=== PATIENT | female | born 1975 | race Hispanic/Latino ===

== ENCOUNTER 2017-05-23 09:10 | Emergency (ER) | payer MEDICAID ==
[2017-05-23] MEDS ORDERED: DiphenhydrAMINE HCL 50 MG/ML VIAL ONE (09:33)
[2017-05-23 10:53] LABS: APPEARANCE,URINE Clear (CLEAR); BILIRUBIN,URINE Negative (NEGATIVE); COLOR,URINE Yellow (YELLOW); GLUCOSE, URINE (UA) Negative (NEGATIVE); KETONES,URINE Negative (NEGATIVE); LEUKOCYTE ESTERASE ,URINE Moderate (NEGATIVE); NITRATE,URINE Negative (NEGATIVE); OCCULT BLOOD,URINE Negative (NEGATIVE); PH,URINE >=9.0 (5.0-8.0); PROTEIN,URINE Negative (NEGATIVE); UROBILINOGEN,URINE 0.2 mg/dL (0.2-1.0)
[2017-05-23 11:15] LABS: BACTERIA,URINE Rare /HPF (None Seen); RBC,URINE 0-1 /HPF (0-1); SQUAMOUS EPITHELIAL CELL,UR Rare /HPF (0-2); WBC,URINE 0-1 /HPF (0-1)
== END 2017-05-23 12:11 | disposition home or self-care (01) ==
LOC: EDH 09:10
DX: R06.4 Hyperventilation (principal)
CPT/HCPCS: 81001; 87088; 93005; 96372; 99285; J1200

== ENCOUNTER → 2017-08-23 | Outpatient (CLI) | payer MEDICAID | END | disposition home or self-care (01) | LOC: OIH 11:06 | PROVIDERS: ATTEND Internal Medicine Gastroenterology | DX: K59.01 Slow transit constipation (principal) | CPT/HCPCS: 74018 ==

== ENCOUNTER → 2018-04-27 | Outpatient (CLI) | payer MEDICAID ==
[~2018-04-27] MED LIST: BISA5TAB12 PO; FLUO20CA30 PO; IBUP-2070 PO; LAMO25TA8 PO; LINA290C PO; OMEP20CA10 PO; TEMA30CA PO
== END | disposition home or self-care (01) ==
LOC: RAH 13:47
PROVIDERS: ATTEND Family Medicine
DX: J32.9 Chronic sinusitis, unspecified (principal)
CPT/HCPCS: 70486

== ENCOUNTER → 2018-06-03 | Outpatient (CLI) | payer MEDICAID ==
[~2018-06-03] MED LIST changes: -LAMO25TA8 PO; +LAMO25TA9 PO
== END | disposition home or self-care (01) ==
LOC: RAH 13:55
PROVIDERS: ATTEND Family Medicine
DX: R51 Headache (principal)
CPT/HCPCS: 70450

== ENCOUNTER 2018-08-07 14:41 | Emergency (ER) | payer MEDICAID ==
[2018-08-07] MEDS ORDERED: DiphenhydrAMINE HCL 50 MG/ML VIAL ONE (15:08)
[2018-08-07 15:13] LABS: BASOPHILS % (AUTO) 0.5 % (0.0-5.0); EOSINOPHILS % (AUTO) 1.2 % (0.0-8.0); HEMATOCRIT 37.8 % (36-48); LYMPHOCYTES % (AUTO) 22.7 % (21.0-51.0); MEAN CORPUSCULAR HEMOGLOBIN 28.4 pg (27.0-33.0); MEAN CORPUSCULAR HGB CONC 33.6 g/dL (32.0-36.0); MEAN CORPUSCULAR VOLUME 84.6 fL (79-99); MONOCYTES % (AUTO) 3.2 % (3.0-13.0); NEUTROPHILS % (AUTO) 72.4 % (40.0-77.0); PLATELET COUNT (AUTO) 299 K/uL (130-400); RED BLOOD CELL COUNT(AUTO) 4.47 MIL/uL (4.00-5.50); RED CELL DISTRIBUTION WIDTH 12.8 % (11.0-15.5); WHITE BLOOD COUNT (AUTO) 6.3 K/uL (4.8-10.8)
[2018-08-07 15:28] LABS: APPEARANCE,URINE Cloudy (CLEAR); BILIRUBIN,URINE Negative (NEGATIVE); COLOR,URINE Yellow (YELLOW); GLUCOSE, URINE (UA) Negative (NEGATIVE); KETONES,URINE Trace mg/dL (NEGATIVE); LEUKOCYTE ESTERASE ,URINE Large (NEGATIVE); NITRATE,URINE Negative (NEGATIVE); OCCULT BLOOD,URINE Small (NEGATIVE); PROTEIN,URINE Trace mg/dL (NEGATIVE)
[2018-08-07 15:30] LABS: HCG,QUAL RESULT NEGATIVE (NEGATIVE)
[2018-08-07 15:36] LABS: MUCUS,URINE Many LPF (None Seen)
[2018-08-07 15:37] LABS: BACTERIA,URINE Few /HPF (None Seen); RBC,URINE 0-1 /HPF (0-1); SQUAMOUS EPITHELIAL CELL,UR 30-50 /HPF (0-2); WBC,URINE 26-50 /HPF (0-1)
[2018-08-07 16:36] LABS: CREATININE 0.7 mg/dL (0.5-1.5); POTASSIUM 3.3 mmol/L (3.5-5.1)
[2018-08-07 16:40] LABS: ALBUMIN 3.4 g/dL (3.5-5.0); BILIRUBIN,TOTAL 0.7 mg/dL (0.2-1.0); TOTAL PROTEIN, SERUM 7.1 g/dL (6.0-8.3)
[2018-08-07 16:44] LABS: APPEARANCE,URINE Clear (CLEAR); BILIRUBIN,URINE Negative (NEGATIVE); COLOR,URINE Yellow (YELLOW); GLUCOSE, URINE (UA) Negative (NEGATIVE); KETONES,URINE Negative (NEGATIVE); LEUKOCYTE ESTERASE ,URINE Moderate (NEGATIVE); NITRATE,URINE Negative (NEGATIVE); OCCULT BLOOD,URINE Small (NEGATIVE); PH,URINE >=9.0 (5.0-8.0); PROTEIN,URINE Negative (NEGATIVE); UROBILINOGEN,URINE 0.2 mg/dL (0.2-1.0)
[2018-08-07] MEDS ORDERED: KETOROLAC TROMETHAMINE 30MG/ML ONE (16:46)
[2018-08-07 16:58] LABS: BACTERIA,URINE Few /HPF (None Seen); RBC,URINE 0-1 /HPF (0-1)
== END 2018-08-07 17:42 | disposition home or self-care (01) ==
LOC: EDH 14:41
DX: G43.909 Migraine, unspecified, not intractable, without status migrainosus (principal); R10.84 Generalized abdominal pain; R06.4 Hyperventilation; F32.9 Major depressive disorder, single episode, unspecified; F41.9 Anxiety disorder, unspecified
CPT/HCPCS: 36415; 71046; 80053; 81001; 81025; 82550; 84484; 85025; 87088; 93005; 96374; 96375; 99285; J1200; J1885

== ENCOUNTER 2018-12-21 07:06 | Day surgery (SDC) | payer MEDICAID ==
[~2018-12-21] VITALS: Ht 157.5 cm; Wt 68.9 kg
[~2018-12-21 07:06] MED LIST changes: +OMEP-50 PO; -OMEP20CA10 PO; +SODIUM CHLORIDE 0.9% 1000ML 1,000 ML IV ONE
[2018-12-21 08:15] VITALS: BP 99/66
[2018-12-21] MEDS ORDERED: PROPOFOL 10 MG/ML 20ML VIAL IV ONE ×2 (09:29)
[2018-12-21 09:40] VITALS: BP 88/49
[2018-12-21 09:45] VITALS: BP 93/45
[2018-12-21 09:50] VITALS: BP 92/67
[2018-12-21 09:55] VITALS: BP 93/67
[2018-12-21 10:00] VITALS: BP 106/59
== END 2018-12-21 10:10 | disposition home or self-care (01) ==
LOC: ENDO 07:06 → DAH 07:06 → ENDO 10:10
PROVIDERS: ATTEND Internal Medicine Gastroenterology
DX: K29.50 Unspecified chronic gastritis without bleeding (principal); K44.9 Diaphragmatic hernia without obstruction or gangrene; K59.04 Chronic idiopathic constipation; K62.89 Other specified diseases of anus and rectum; K21.9 Gastro-esophageal reflux disease without esophagitis; F41.9 Anxiety disorder, unspecified; F32.9 Major depressive disorder, single episode, unspecified; Z79.899 Other long term (current) drug therapy
CPT/HCPCS: 43239; 81025; 88305; A4215; A4221; A4222; A4223; A4606; A4615; A4663; J2704 ×2; J7030

== ENCOUNTER 2022-07-24 09:58 | Emergency (ER) | payer MEDICAID ==
[~2022-07-24] VITALS: Ht 157.5 cm; Wt 68.0 kg
[~2022-07-24 09:58] MED LIST changes: +ACET-2247 PO; +BISA-151 PO; -BISA5TAB12 PO; +CEPH500B PO; -FLUO20CA30 PO; -LAMO25TA9 PO; -OMEP-50 PO; +OSEL75 PO; -SODIUM CHLORIDE 0.9% 1000ML 1,000 ML IV ONE
[2022-07-24 11:05] LABS: APPEARANCE,URINE CLEAR (CLEAR); BILIRUBIN,URINE NEGATIVE (NEGATIVE); COLOR,URINE COLORLESS (YELLOW); GLUCOSE, URINE (UA) NEGATIVE (NEGATIVE); KETONES,URINE NEGATIVE (NEGATIVE); LEUKOCYTE ESTERASE ,URINE 75 Leu/uL (NEGATIVE); NITRATE,URINE NEGATIVE (NEGATIVE); OCCULT BLOOD,URINE NEGATIVE (NEGATIVE); PROTEIN,URINE NEGATIVE (NEGATIVE); UROBILINOGEN,URINE 0.2 mg/dL (0.2-1.0)
[2022-07-24 11:19] LABS: BACTERIA,URINE RARE /HPF (None Seen); MUCUS,URINE RARE LPF (None Seen); SQUAMOUS EPITHELIAL CELL,UR RARE /HPF (0-2)
[2022-07-24] MEDS ORDERED: LACT10SO9 PO (11:50)
[2022-07-24 11:56] VITALS: BP 133/78
== END 2022-07-24 11:57 | disposition home or self-care (01) ==
LOC: EDH 09:58
DX: K59.00 Constipation, unspecified (principal); Z90.49 Acquired absence of other specified parts of digestive tract; Z79.899 Other long term (current) drug therapy; Z98.890 Other specified postprocedural states; Z88.8 Allergy status to other drugs, medicaments and biological substances
CPT/HCPCS: 74018; 81001; 87088

== ENCOUNTER 2022-09-06 20:21 | Emergency (ER) | payer MEDICAID ==
[~2022-09-06] VITALS: Ht 157.5 cm; Wt 67.1 kg
[~2022-09-06 20:21] MED LIST changes: +LACT10SO9 PO
[2022-09-06 20:22] VITALS: BP 116/64
[2022-09-06] MEDS ORDERED: KETOROLAC 30MG VIAL (30MG/ML) IVP ONE (22:00)
[2022-09-06] MEDS ORDERED: ACETAMINOPHEN WITH CODEINE 1 TAB TAB PO ONE (22:00)
[2022-09-06] MEDS ORDERED: NAPR500T6 PO (22:47)
== END 2022-09-06 22:52 | disposition home or self-care (01) ==
LOC: EDH 20:21
DX: S93.401A Sprain of unspecified ligament of right ankle, initial encounter (principal); Z88.1 Allergy status to other antibiotic agents; Z90.49 Acquired absence of other specified parts of digestive tract; X50.1XXA Overexertion from prolonged static or awkward postures, initial encounter; Y93.01 Activity, walking, marching and hiking; Y92.89 Other specified places as the place of occurrence of the external cause; Y99.8 Other external cause status
CPT/HCPCS: 99283; 96374; 73600; J1885

== ENCOUNTER 2022-12-16 10:16 | Emergency (ER) | payer MEDICAID ==
[~2022-12-16] VITALS: Ht 152.4 cm; Wt 67.6 kg
[~2022-12-16 10:16] MED LIST changes: +NAPR500T6 PO
[2022-12-16] MEDS ORDERED: 0.9%NACL 1000ML 1,000 ML IV ONE (10:30)
[2022-12-16 10:38] VITALS: BP 127/76; PULSE 81; RESP 14; O2SAT 98
[2022-12-16 11:42] LABS: APPEARANCE,URINE CLOUDY (CLEAR); BILIRUBIN,URINE NEGATIVE (NEGATIVE); COLOR,URINE YELLOW (YELLOW); GLUCOSE, URINE (UA) NEGATIVE (NEGATIVE); KETONES,URINE NEGATIVE (NEGATIVE); LEUKOCYTE ESTERASE ,URINE NEGATIVE Leu/uL (NEGATIVE); NITRATE,URINE NEGATIVE (NEGATIVE); OCCULT BLOOD,URINE MODERATE (NEGATIVE); PH,URINE 6.5 (5.0-8.0); PROTEIN,URINE 10 mg/dL (NEGATIVE); UROBILINOGEN,URINE 0.2 mg/dL (0.2-1.0)
[2022-12-16 11:54] LABS: ADD UA MICROSCOPIC YES
[2022-12-16] MEDS ORDERED: SOLU-MEDROL 125MG VIAL IVP ONE (12:00)
[2022-12-16 12:01] LABS: BACTERIA,URINE RARE /HPF (None Seen); MUCUS,URINE FEW LPF (None Seen); SQUAMOUS EPITHELIAL CELL,UR MANY /HPF (0-2)
[2022-12-16] MEDS ORDERED: METH4TAB3 PO (13:26)
== END 2022-12-16 13:39 | disposition home or self-care (01) ==
LOC: EDH 10:16
DX: M79.671 Pain in right foot (principal); R53.1 Weakness; Z90.49 Acquired absence of other specified parts of digestive tract; Z88.1 Allergy status to other antibiotic agents; Z79.52 Long term (current) use of systemic steroids
CPT/HCPCS: 99285; 96374; 70450; 96361; 81001; 73620; J7030; J2930

== ENCOUNTER → 2023-06-14 | Outpatient (CLI) | payer MEDICAID ==
[~2023-06-14] MED LIST changes: +METH4TAB3 PO
[2023-06-14 12:03] LABS: CREATININE 0.6 mg/dL (0.5-1.0)
== END | disposition home or self-care (01) ==
LOC: LAB 11:16
PROVIDERS: ATTEND Internal Medicine Gastroenterology
DX: R10.10 Upper abdominal pain, unspecified (principal)
CPT/HCPCS: 36415; 82565; 84520

== ENCOUNTER 2024-01-13 08:30 | Emergency (ER) | payer MEDICAID ==
[~2024-01-13] VITALS: Ht 157.5 cm; Wt 68.0 kg
[~2024-01-13 08:30] MED LIST changes: +BENZ-39 PO; +NAPR-1506 PO; -NAPR500T6 PO
--- NOTE | 2024-01-13 08:58 | ERN ---
General Chief Complaint: Multiple Complaints Stated Complaint: WEAKNESS Time Seen by MD: 08:46 History of Present Illness Initial Comments 48-year-old female presents for fevers, headaches, body aches, dizziness, nausea, cough and sore throat for the last 36 hours. Her son recently tested positive for flu. Medical history: Irritable bowel syndrome Surgical history: Hysterectomy Allergies: Coded Allergies: levofloxacin (Unverified Allergy, Severe, FACE SWELLS, 10/18/17) Uncoded Allergies: PER PT UNABLE TO RECALL NAME (Allergy, Unknown, 06/26/22) Home Meds Active Scripts Benzonatate (Tessalon Perles) 100 Mg Cap, 100 MG PO TID for cough, #30 CAP 0 Refills Prov:DONATO PEDROZA MD 09/19/23 Methylprednisolone (Medrol) 4 Mg Tab.ds.pk, 4 MG PO AD for 6 Days, #1 PACK Prov:MEGHA HOSKINS MD 12/16/22 Naproxen (Naproxen) 500 Mg Tablet.dr, 500 MG PO [id number] PRN for PAIN, #15 TAB 0 Refills Prov:RYANNE MCKINNON DEVELOPMENT INTERN 09/06/22 Lactulose (Lactulose) 20 Gm/30 Ml Solution, 20 GM PO BID for constipation for 5 Days, #240 ML Prov:PEPE DU MD 07/24/22 Acetaminophen (Tylenol) 325 Mg Tablet, 650 MG PO Q4HPRN, #50 TAB Prov:BRAYAN SIMONS 01/30/22 Oseltamivir Phosphate (Tamiflu) 75 Mg Cap, 75 MG PO BID for 5 Days, #10 CAP Prov:BRAYAN SIMONS 01/30/22 Cephalexin Monohydrate (Keflex) 500 Mg Cap, 500 MG PO TID for 10 Days, #30 CAP 0 Refills Prov:RUDY GUTIERREZ DEVELOPMENT INTERN 11/02/20 Reported Medications Ibuprofen (Ibuprofen) 600 Mg Tablet, 600 MG PO AD PRN for PRN, TAB 10/18/17 Bisacodyl (Bisacodyl) 5 Mg Tablet.dr, 5 MG PO DAILY, TAB 10/18/17 Linaclotide (Linzess) 290 Mcg Capsule, 290 MCG PO DAILY, CAP 10/18/17 Temazepam (Temazepam) 30 Mg Capsule, 30 MG PO HS, CAP 10/18/17 Past Medical History Past Medical History: Other Medical History Other: IBS Past Surgical History: Hysterectomy, Cholecystectomy Social History Social History: Negative ROS Dictation CONSTITUTIONAL: Fever weakness HEAD/FACE: No signs of trauma. EENT: Sore throat cough congestion CARDIOVASCULAR: No chest pain, no edema, no palpitations, no syncope. GASTROINTESTINAL/ABDOMINAL: No abdominal pain, no constipation, no diarrhea, no nausea, no vomiting. GENITOURINARY: Nausea MUSCULOSKELETAL: No back pain, no gout, no joint pain, no joint swelling, no muscle pain, no muscle stiffness, no neck pain. INTEGUMENTARY: No change in color, no change in hair/nails, no dryness, no lesion, no lumps, no rash. NEUROLOGICAL/PSYCH: No anxiety, not depressed, no emotional problem, no headache, no numbness, no pre-existing deficit, no history of seizures, no tremors, no weakness. HEMATOLOGIC/LYMPHATIC: Not anemic, no history of blood clots, no apparent bleeding, no bruising, glands not swollen. All Systems Negative, Except as Noted. Physical Exam Physical Exam Dictation VITAL SIGNS: Reviewed. GENERAL APPEARANCE: Moderate distress due to discomfort HEAD AND FACE: Non-traumatic. EYES: PERRL, pink conjunctivas, eyelid no trauma, anterior chamber clear. EARS: Pinnas intact and no signs of trauma or erythema. Ear canals clear and no discharge. TMs no erythema. NOSE: No discharge, no bleeding. OROPHARYNX: Mouth normal, teeth no caries, tongue pink. Pharynx clear, no erythema. Tonsils no exudates, no abscesses noted. Mucous membrane moist. NECK: Supple, non-tender, no thyromegaly, no masses, no JVD, no bruits. BREAST: Deferred. CHEST: No tenderness, no crepitus, no paradoxical movement, no retractions. LUNGS: Clear, well-ventilated, symmetric, no rales, no wheezing, no rhonchi, no stridor, good breath sounds bilaterally. HEART: Regular rate, regular rhythm, no murmur, no gallops. VASCULAR: No peripheral edema. ABDOMEN: Soft, positive bowel sounds, nondistended, no guarding, nontender, no rebound, no masses no hepatomegaly, no splenomegaly, no Banda's sign, no hernias. RECTAL: Deferred. GENITAL: Deferred. NEUROLOGICAL: Normal speech, gross motor function intact, gross sensory function intact. MUSCULOSKELETAL: Neck nontender, full range of motion, back nontender, full range of motion. EXTREMITIES: Nontender, full range of motion. SKIN: Color pink, dry, no turgor, no rash, no lacerations, no abrasions, no contusions. LYMPHATICS: Deferred. Results Laboratory and Microbiology Lab and Micro Result Laboratory Tests Test 01/13/24 08:54 01/13/24 09:18 Influenza Type A Antigen Positive For Type A Influenza Type B Antigen Negative For Type B SARS-CoV-2 Antigen (Rapid) PRESUMPTIVE NEGATIVE Group A Streptococcus Rapid negative (NEGATIVE) White Blood Count 5.2 K/uL (4.8-10.8) Red Blood Count 4.54 MIL/uL (4.00-5.50) Hemoglobin 12.8 g/dL (12.0-16.0) Hematocrit 39.0 % (36-48) Mean Corpuscular Volume 85.9 fL (79-99) Mean Corpuscular Hemoglobin 28.2 pg (27.0-33.0) Mean Corpuscular Hemoglobin Concent 32.8 g/dL (32.0-36.0) Red Cell Distribution Width 12.5 % (11.0-15.5) Platelet Count 208 K/uL (130-400) Mean Platelet Volume 9.0 fL (7.5-10.5) Immature Granulocyte % (Auto) 0.4 % (0-1) Neutrophils (%) (Auto) 84.3 % (40.0-77.0) H Lymphocytes (%) (Auto) 6.6 % (21.0-51.0) L Monocytes (%) (Auto) 8.5 % (3.0-13.0) Eosinophils (%) (Auto) 0.0 % (0.0-8.0) Basophils (%) (Auto) 0.2 % (0.0-5.0) Neutrophils # (Auto) 4.4 K/uL (1.8-7.7) Lymphocytes # (Auto) 0.3 K/uL (1.0-4.8) L Monocytes # (Auto) 0.4 K/uL (0.1-1.0) Eosinophils # (Auto) 0.00 K/uL (0.00-0.70) Basophils # (Auto) 0.01 K/uL (0.00-0.20) Absolute Immature Granulocyte (auto 0.02 K/uL (0-1) Nucleated Red Blood Cells 0.0 % (0.0-0.19) Sodium Level 134 mmol/L (136-145) L Potassium Level 3.1 mmol/L (3.5-5.1) L Chloride Level 95 mmol/L (101-111) L Carbon Dioxide Level 30 mmol/L (21-32) Blood Urea Nitrogen 10 mg/dL (7-18) Creatinine 0.8 mg/dL (0.5-1.0) Glomerular Filtration Rate Calc 91 mL/min (>90) Random Glucose 93 mg/dL (70-105) Total Calcium 9.2 mg/dL (8.5-10.1) Total Bilirubin 1.0 mg/dL (0.2-1.0) Direct Bilirubin 0.2 mg/dL (0.0-0.3) Aspartate Amino Transf (AST/SGOT) 17 U/L (10-37) Alanine Aminotransferase (ALT/SGPT) 17 U/L (12-78) Alkaline Phosphatase 70 U/L (50-136) Total Creatine Kinase 59 U/L (21-232) Troponin I High Sensitivity < 4 ng/L (4-50) L Total Protein 7.4 g/dL (6.0-8.3) Albumin 3.6 g/dL (3.5-5.0) MDM CC: Flu-like illness and symptoms, dehydration Historian: Patient Comorbidities: IBS Differential diagnosis: Flu-like illness, sepsis, dehydration, electrolyte abnormality. Vital signs: Initially febrile 101.8, heart rate of 120. Otherwise vital signs stable. Improved in the ER. Labs: No leukocytosis, left shift 84% neutrophils. No bands. No anemia. Chemistry: Sodium and chloride mildly low consistent with dehydration. Potassium 3.1. The rest of the liver enzymes, troponin, CK are unremarkable. Swabs positive for flu A consistent with the patient's presentation. CXR: No cardiomegaly no pleural effusion no focal infiltrates. Independently interpreted by me. Patient received IV fluids, Toradol, Tylenol here in the ER. She received potassium bicarb for the hypokalemia. Patient has no major signs of dehydration, no signs of clinical sepsis. Symptoms are consistent with flu a. Vitals have improved. She received fluids. We will DC with Tamiflu recommend PCP follow up. ED Course Orders Procedure Category Date Status Time Cbc With Differential LAB 01/13/24 In Process 08:47 Blood Cult LUCIA 01/13/24 In Process 08:47 Urinalysis Profile LAB 01/13/24 Logged 08:47 Culture Urine LUCIA 01/13/24 Logged 08:47 0.9%Nacl 1000ml (Ns PHA 01/13/24 In Process 1000ml) 09:00 Creatine Kinase, Total LAB 01/13/24 In Process 08:47 Troponin I High LAB 01/13/24 Complete Sensitivity 08:47 Lactic Acid LAB 01/13/24 In Process 08:47 Basic Metabolic Panel LAB 01/13/24 In Process 08:47 Chest 1vw RAD 01/13/24 Taken 08:47 Ketorolac PHA 01/13/24 Complete Tromethamine 15mg/Ml 09:00 Acetaminophen 500mg PHA 01/13/24 Complete Tab (Tylenol 500mg T 09:00 Hepatic Function Panel LAB 01/13/24 In Process 08:47 Covid19 (Sars Antigen LAB 01/13/24 Complete Rapid) 08:47 Influenza Type A & B, LAB 01/13/24 Complete Rapid 08:47 Rapid (Group A Strep) LAB 01/13/24 Complete 08:50 Potassium Bicarb/Cit PHA 01/13/24 In Process Ac 25meq (K-Lyte Ta 11:00 Current Medications Medications (Trade) Dose Ordered Sig/Gurjit Route PRN Reason Start Time Stop Time Status Last Admin Dose Admin Acetaminophen (TYLenol 500MG TAB) 1,000 mg ONCE ONCE PO 01/13/24 09:00 01/13/24 09:01 DC 01/13/24 09:07 Ketorolac Tromethamine (toRADol) 15 mg ONCE ONCE IV 01/13/24 09:00 01/13/24 09:01 DC 01/13/24 09:07 Sodium Chloride 2,040 ml @ 680 mls/hr ONCE ONCE IV 01/13/24 09:00 01/13/24 11:59 01/13/24 09:07 Vital Signs Date Time Temp Pulse Resp B/P (MAP) Pulse Ox O2 Delivery O2 Flow Rate FiO2 01/13/24 09:07 101.5 01/13/24 08:36 101.8 120 20 104/70 99 Room Air 0 DX & DISP Disposition: Discharge Departure Impression: Primary Impression: Influenza A Additional Impressions: Hypokalemia, Dehydration Condition: Stable Scripts Oseltamivir Phosphate (Tamiflu) 75 Mg Cap 1 CAP PO BID for 5 Days, #10 CAP 0 Refills Prov: SARAH LITTLE DO 01/13/24 Additional Instructions: You tested positive for influenza a, or the flu. This is consistent with her symptoms. Your lab work (CBC, BNP, liver enzymes, CK, troponin) shows mild dehydration and mildly low potassium. You received IV fluids and oral potassium in the ER. You received IV Toradol and oral Tylenol here in the ER. I have prescribed Tamiflu. Take this twice per day for the next five days. Note that this medicine does give some people stomach upset. Be sure to alternate 1000 mg of Tylenol and 600 mg of ibuprofen every 4-6 hours for fever or body aches. At this medications are [id number]. You can also take [id number] cold and flu medications as needed. Please follow up with the primary doctor in 48 hours if you continue with symptoms. Return to the emergency department as needed. Referrals: BETTIE FARRAR MD (PCP) SARAH LITTLE DO Jan 13, 2024 08:58
[2024-01-13] MEDS: acetaMINOPHEN 500 MG TABLET PO ONE (09:07)
[2024-01-13] MEDS: 0.9%NACL 1000ML 2,040 ML IV ONE (09:07)
[2024-01-13] MEDS: ketOROlac 15MG/ML VIAL (15MG/ML) IV ONE (09:07)
[2024-01-13 09:25] LABS: INFLUENZA TYPE B Negative For Type B (NEGATIVE)
[2024-01-13 09:28] LABS: COVID19 (SARS ANTIGEN RAPID) PRESUMPTIVE NEGATIVE (NEGATIVE)
[2024-01-13 09:40] LABS: BASOPHILS # (AUTO) 0.01 K/uL (0.00-0.20); BASOPHILS % (AUTO) 0.2 % (0.0-5.0); IMMATURE GRANULOCYTE ABSOLUTE 0.02 K/uL (0-1); LYMPHOCYTES # (AUTO) 0.3 K/uL (1.0-4.8); LYMPHOCYTES % (AUTO) 6.6 % (21.0-51.0); MEAN CORPUSCULAR HEMOGLOBIN 28.2 pg (27.0-33.0); MEAN CORPUSCULAR HGB CONC 32.8 g/dL (32.0-36.0); MEAN CORPUSCULAR VOLUME 85.9 fL (79-99); MONOCYTES # (AUTO) 0.4 K/uL (0.1-1.0); MONOCYTES % (AUTO) 8.5 % (3.0-13.0); NEUTROPHILS # (AUTO) 4.4 K/uL (1.8-7.7); NEUTROPHILS % (AUTO) 84.3 % (40.0-77.0); PLATELET COUNT (AUTO) 208 K/uL (130-400); RED BLOOD CELL COUNT(AUTO) 4.54 MIL/uL (4.00-5.50); RED CELL DISTRIBUTION WIDTH 12.5 % (11.0-15.5); WHITE BLOOD COUNT (AUTO) 5.2 K/uL (4.8-10.8)
[2024-01-13 09:45] LABS: INFLUENZA TYPE A Positive For Type A (NEGATIVE)
[2024-01-13 10:15] LABS: ALBUMIN 3.6 g/dL (3.5-5.0); BILIRUBIN,DIRECT 0.2 mg/dL (0.0-0.3); CREATININE 0.8 mg/dL (0.5-1.0); POTASSIUM 3.1 mmol/L (3.5-5.1); TOTAL PROTEIN, SERUM 7.4 g/dL (6.0-8.3)
[2024-01-13 10:22] VITALS: TEMP 99.9
[2024-01-13] MEDS ORDERED: OSEL75 PO (10:33)
[2024-01-13 10:41] VITALS: BP 106/72; PULSE 90; RESP 20; TEMP 99.9; O2SAT 99
--- NOTE | 2024-01-13 10:49 | HMCIMG ---
CHEST 1VW HISTORY: Sepsis COMPARISON: 09/19/2023 FINDINGS: A frontal projection of the chest was obtained. No acute pulmonary infiltrates is seen. The heart is borderline enlarged. Prominent interstitial markings are seen. Degenerative changes are seen. No evidence of aortic calcification is seen. IMPRESSION: 1. No acute pulmonary infiltrate is seen.
[2024-01-13] MEDS ORDERED: PoTASSium BIcarbonate/CIT AC 25 MEQ TABLET.EFF PO ONE (11:00)
== END 2024-01-13 10:50 | disposition home or self-care (01) ==
LOC: EDH 08:30
DX: J10.1 Influenza due to other identified influenza virus with other respiratory manifestations (principal); E86.0 Dehydration; E87.6 Hypokalemia; Z20.822 Contact with and (suspected) exposure to COVID-19; Z79.899 Other long term (current) drug therapy; Z88.1 Allergy status to other antibiotic agents; Z90.49 Acquired absence of other specified parts of digestive tract; Z90.710 Acquired absence of both cervix and uterus
CPT/HCPCS: 99284; 96374; 71045; 96361; 87426; 82550; 80076; 84484; 80048; 85025; 87040 ×2; 87880; 87804 ×2; 83605; 36415; J7030; J1885

== ENCOUNTER 2024-01-15 16:38 | Emergency (ER) | payer MEDICAID ==
[~2024-01-15] VITALS: Ht 167.6 cm; Wt 68.0 kg
--- NOTE | 2024-01-15 17:00 | ERN ---
ED Note History of Present Illness Stated Complaint: SHORTNESS OF BREATH Chief Complaint: Shortness of Breath Time Seen by MD: 16:52 Dictation: PATIENT IS A 48-YEAR-OLD FEMALE WHO WAS DIAGNOSED WITH INFLUENZA AT [facility] TWO DAYS AGO AND STARTED ON TAMIFLU. SHE STATES SHE HAS BEEN HAVING SHORTNESS BREATH ON EXERTION FOR THE LAST TWO DAYS, DID NOT GO SEE HER PRIMARY CARE DOCTOR. NO FEVER NO CHILLS AT THIS TIME SHE DENIES ANY PRODUCTIVE COUGH. NO HISTORY OF ASTHMA CHF HEART DISEASE DIABETES HYPERTENSION. Allergies: Coded Allergies: levofloxacin (Unverified Allergy, Severe, FACE SWELLS, 10/18/17) Uncoded Allergies: PER PT UNABLE TO RECALL NAME (Allergy, Unknown, 06/26/22) Home Meds Active Scripts Oseltamivir Phosphate (Tamiflu) 75 Mg Cap, 1 CAP PO BID for 5 Days, #10 CAP 0 Refills Prov:SARAH LITTLE DO 01/13/24 Benzonatate (Tessalon Perles) 100 Mg Cap, 100 MG PO TID for cough, #30 CAP 0 Refills Prov:DONATO PEDROZA MD 09/19/23 Methylprednisolone (Medrol) 4 Mg Tab.ds.pk, 4 MG PO AD for 6 Days, #1 PACK Prov:MEGHA HOSKINS MD 12/16/22 Naproxen (Naproxen) 500 Mg Tablet.dr, 500 MG PO [id number] PRN for PAIN, #15 TAB 0 Refills Prov:YRANNE MCKINNON NP 09/06/22 Lactulose (Lactulose) 20 Gm/30 Ml Solution, 20 GM PO BID for constipation for 5 Days, #240 ML Prov:PEPE DU MD 07/24/22 Acetaminophen (Tylenol) 325 Mg Tablet, 650 MG PO Q4HPRN, #50 TAB Prov:BRAYAN SIMONS 01/30/22 Oseltamivir Phosphate (Tamiflu) 75 Mg Cap, 75 MG PO BID for 5 Days, #10 CAP Prov:BRAYAN SIMONS 01/30/22 Cephalexin Monohydrate (Keflex) 500 Mg Cap, 500 MG PO TID for 10 Days, #30 CAP 0 Refills Prov:RUDY GUTIERREZ AUTOMOTIVE BRAKE TECHNICIAN 11/02/20 Reported Medications Ibuprofen (Ibuprofen) 600 Mg Tablet, 600 MG PO AD PRN for PRN, TAB 10/18/17 Bisacodyl (Bisacodyl) 5 Mg Tablet.dr, 5 MG PO DAILY, TAB 10/18/17 Linaclotide (Linzess) 290 Mcg Capsule, 290 MCG PO DAILY, CAP 10/18/17 Temazepam (Temazepam) 30 Mg Capsule, 30 MG PO HS, CAP 10/18/17 Past Medical History Past Medical History: No Pertinent History Additional Past Medical Hx: IBS Surgical History: None PSYCH History: no pertinent psych hx Social History: Negative History: Not Applicable RN Note Reviewed/Agreed w/PFSH: Yes Review of System Dictation CONSTITUTIONAL: NEGATIVE EXCEPT FOR HPI HEAD/FACE: NEGATIVE EXCEPT FOR HPI EENT: NEGATIVE EXCEPT FOR HPI RESPIRATORY: NEGATIVE EXCEPT FOR HPI SOB ON EXERTION GASTROINTESTINAL/ABDOMINAL: NEGATIVE EXCEPT FOR HPI GENITOURINARY: NEGATIVE EXCEPT FOR HPI MUSCULOSKELETAL: NEGATIVE EXCEPT FOR HPI INTEGUMENTARY: NEGATIVE EXCEPT FOR HPI NEUROLOGICAL/PSYCH: NEGATIVE EXCEPT FOR HPI HEMATOLOGIC/LYMPHATIC: NEGATIVE EXCEPT FOR HPI ALL SYSTEMS NEGATIVE, EXCEPT NOTED ABOVE. 13 POINT REVIEW OF SYSTEMS ASSESSED AND ALL NEGATIVE EXCEPT FOR ABOVE. Initial Vital Sign VS Vital Signs Date Time Temp Pulse Resp B/P (MAP) Pulse Ox O2 Delivery O2 Flow Rate FiO2 01/15/24 16:51 98.6 78 20 105/73 100 Room Air 0 01/15/24 17:10 21 Physical Exam Dictation VITAL SIGNS REVIEWED GENERAL APPEARANCE: ALERT, ORIENTED X 3, NO ACUTE DISTRESS, WELL DEVELOPED, NOURISHED. HEAD AND FACE: NON-TRAUMATIC. EYES: PERRL, PINK CONJUNCTIVAS, EYELID NO TRAUMA, ANTERIOR CHAMBER WITH ARCUS SENILIS. EARS: PINNAS INTACT AND NO SIGNS OF TRAUMA OR ERYTHEMA EAR CANALS CLEAR AND NO DISCHARGE TM NO ERYTHEMA NOSE: NO DISCHARGE, NO BLEEDING. OROPHARYNX: MOUTH NORMAL, TONGUE PINK, PHARYNX CLEAR,NO ERYTHEMA, TONSILS NO EXUDATES, NO ABSCESSES NOTED, MUCOUS MEMBRANE MOIST NECK: SUPPLE, NON-TENDER, NO THYROMEGALY, NO MASSES, NO JVD, NO BRUITS BREAST:DEFERRED CHEST:NO TENDERNESS, NO CREPITUS, NO PARADOXICAL MOVEMENT, NO RETRACTIONS LUNGS:CLEAR, WELL-VENTILATED, SYMMETRIC, NO RALES, NO WHEEZING, NO RHONCHI, NO STRIDOR, GOOD BREATH SOUNDS BILATERALLY NO RETRACTIONS NO TACHYPNEA HEART: REGULAR RATE, REGULAR RHYTHM, NO MURMUR, NO GALLOPS VASCULAR: NO PERIPHERAL EDEMA, ABDOMEN: SOFT, POSITIVE BOWEL SOUNDS, NONDISTENDED, NO GUARDING, NONTENDER, NO REBOUND, NO MASSES NO HEPATOMEGALY, NO SPLENOMEGALY, NO HUNT'S SIGN, NO HERNIAS. RECTAL: DEFERRED GENITAL: DEFERRED NEUROLOGICAL: NORMAL SPEECH, MOTOR FUNCTION INTACT, SENSORY FUNCTION INTACT MUSCULOSKELETAL: NECK NONTENDER, FULL RANGE OF MOTION, BACK NONTENDER, FULL RANGE OF MOTION, EXTREMITIES: NONTENDER, FULL RANGE OF MOTION SKIN: COLOR PINK, DRY, NO TURGOR, NO RASH, NO LACERATIONS, NO ABRASIONS, NO CONTUSIONS. LYMPHATIC: DEFERRED Results (Laboratory/Radiology) Laboratory/Radiology Laboratory Tests Test 01/15/24 17:05 White Blood Count 4.5 K/uL (4.8-10.8) L Red Blood Count 4.72 MIL/uL (4.00-5.50) Hemoglobin 13.3 g/dL (12.0-16.0) Hematocrit 38.6 % (36-48) Mean Corpuscular Volume 81.8 fL (79-99) Mean Corpuscular Hemoglobin 28.2 pg (27.0-33.0) Mean Corpuscular Hemoglobin Concent 34.5 g/dL (32.0-36.0) Red Cell Distribution Width 12.5 % (11.0-15.5) Platelet Count 222 K/uL (130-400) Mean Platelet Volume 9.4 fL (7.5-10.5) Immature Granulocyte % (Auto) 0.2 % (0-1) Neutrophils (%) (Auto) 54.2 % (40.0-77.0) Lymphocytes (%) (Auto) 35.9 % (21.0-51.0) Monocytes (%) (Auto) 9.3 % (3.0-13.0) Eosinophils (%) (Auto) 0.2 % (0.0-8.0) Basophils (%) (Auto) 0.2 % (0.0-5.0) Neutrophils # (Auto) 2.4 K/uL (1.8-7.7) Lymphocytes # (Auto) 1.6 K/uL (1.0-4.8) Monocytes # (Auto) 0.4 K/uL (0.1-1.0) Eosinophils # (Auto) 0.01 K/uL (0.00-0.70) Basophils # (Auto) 0.01 K/uL (0.00-0.20) Absolute Immature Granulocyte (auto 0.01 K/uL (0-1) Nucleated Red Blood Cells 0.0 % (0.0-0.19) Sodium Level 136 mmol/L (136-145) Potassium Level 3.1 mmol/L (3.5-5.1) L Chloride Level 97 mmol/L (101-111) L Carbon Dioxide Level 28 mmol/L (21-32) Blood Urea Nitrogen 10 mg/dL (7-18) Creatinine 0.8 mg/dL (0.5-1.0) Glomerular Filtration Rate Calc 91 mL/min (>90) Random Glucose 61 mg/dL (70-105) L Total Calcium 9.0 mg/dL (8.5-10.1) 1909, CHEST X-RAY NEGATIVE Labs Reviewed?: Yes ED Course ED Course Orders Procedure Category Date Status Time Cbc With Differential LAB 01/15/24 Complete 16:55 Basic Metabolic Panel LAB 01/15/24 Complete 16:55 Chest 1vw RAD 01/15/24 Taken 16:55 Methylprednisolone PHA 01/15/24 Complete Succ 125mg (Solu-Medr 17:00 Albuterol 0.083% PHA 01/15/24 Complete 2.5mg/3ml (Proventil 17:00 Current Medications Medications (Trade) Dose Ordered Sig/Gurjit Route PRN Reason Start Time Stop Time Status Last Admin Dose Admin Albuterol Sulfate (Proventil 0.083% 2.5mg/3ml) 5 mg ONCE ONCE IH 01/15/24 17:00 01/15/24 17:01 DC 01/15/24 18:24 Methylprednisolone Sodium Succinate (Solu-medROL 125MG) 125 mg ONCE ONCE IVP 01/15/24 17:00 01/15/24 17:01 DC 01/15/24 17:26 Vital Signs Date Time Temp Pulse Resp B/P (MAP) Pulse Ox O2 Delivery O2 Flow Rate FiO2 01/15/24 18:25 89 22 01/15/24 17:10 98.6 84 24 105/67 100 Room Air* 0 21 01/15/24 16:51 98.6 78 20 105/73 100 Room Air 0 Medical Decision Making MDM DISCHARGE MAKING BASED ON CHEST X-RAY AND BASIC LABS. PATIENT GIVEN ALBUTEROL AND SOLU-MEDROL SATURATING 99-100% ON ROOM AIR DISCHARGED HOME WITH ALBUTEROL INHALER AND MEDROL DOSEPAK DX & DISP Disposition: Discharge Departure Impression: Primary Impression: Influenza A Additional Impression: Dyspnea on exertion Condition: Stable Scripts Methylprednisolone (Medrol) 4 Mg Tab.ds.pk 1 TAB PO AD for 6 Days, #21 TAB 0 Refills 6 on day 1 then reduce by one tablet daily until gone Prov: KIRSTIN AHN NP 01/15/24 Albuterol Sulfate (Ventolin Hfa/Proventil Hfa/Proair Hfa) 90 Mcg Puff 2 PUFF IH Q4H for WHEEZING, #1 INHALER 0 Refills Prov: KIRSTIN AHN NP 01/15/24 Additional Instructions: FOLLOW-UP WITH PRIMARY CARE PROVIDER IN 1 TO 2 DAYS. TAKE MEDICATIONS DIRECTED HERE IN THE EMERGENCY ROOM. OKAY TO CONTINUE HOME MEDICATIONS UNLESS OTHERWISE DISCUSSED DURING YOUR VISIT IN THE EMERGENCY ROOM TODAY. RETURN TO YOUR NEAREST EMERGENCY ROOM IF SYMPTOMS WORSEN OR IF THERE IS NO IMPROVEMENT. CALL 911 IF YOU NEED IMMEDIATE ASSISTANCE. TAKE TYLENOL OR MOTRIN [id number] NEEDED AND IF NO CONTRAINDICATIONS ARE PRESENT. INCREASE ORAL HYDRATION. A WOUND CULTURE OR URINE CULTURE WAS ORDERED HERE IN THE EMERGENCY ROOM DEPARTMENT PLEASE FOLLOW-UP WITH PRIMARY CARE PROVIDER AND ADVISE THEM TO GET REPEAT PORTS FROM OUR FACILITY. IF YOU HAD ANY BRIGIDO WRAP/SPLINTS T HAT WERE APPLIED HERE, PLEASE DO NOT REMOVE THEM UNTIL YOU SEE YOUR PRIMARY CARE OR SPECIALTY. USE ALBUTEROL EVERY 4 HOURS WHILE AWAKE. TAKE MEDROL DOSEPAK DIRECTED UNTIL GONE. SEE YOUR PRIMARY CARE DOCTOR WEDNESDAY Referrals: BETTIE FARRAR MD (PCP) Time of Disposition: 19:12 I have reviewed the case, and I agree with, Diagnosis and Plan KIRSTIN AHN NP Jan 15, 2024 17:00
[2024-01-15 17:10] VITALS: TEMP 98.6
[2024-01-15 17:21] LABS: BASOPHILS # (AUTO) 0.01 K/uL (0.00-0.20); BASOPHILS % (AUTO) 0.2 % (0.0-5.0); EOSINOPHILS # (AUTO) 0.01 K/uL (0.00-0.70); EOSINOPHILS % (AUTO) 0.2 % (0.0-8.0); HEMATOCRIT 38.6 % (36-48); IMMATURE GRANULOCYTE ABSOLUTE 0.01 K/uL (0-1); LYMPHOCYTES # (AUTO) 1.6 K/uL (1.0-4.8); LYMPHOCYTES % (AUTO) 35.9 % (21.0-51.0); MEAN CORPUSCULAR HEMOGLOBIN 28.2 pg (27.0-33.0); MEAN CORPUSCULAR HGB CONC 34.5 g/dL (32.0-36.0); MEAN CORPUSCULAR VOLUME 81.8 fL (79-99); MONOCYTES # (AUTO) 0.4 K/uL (0.1-1.0); MONOCYTES % (AUTO) 9.3 % (3.0-13.0); NEUTROPHILS # (AUTO) 2.4 K/uL (1.8-7.7); NEUTROPHILS % (AUTO) 54.2 % (40.0-77.0); PLATELET COUNT (AUTO) 222 K/uL (130-400); RED BLOOD CELL COUNT(AUTO) 4.72 MIL/uL (4.00-5.50); RED CELL DISTRIBUTION WIDTH 12.5 % (11.0-15.5); WHITE BLOOD COUNT (AUTO) 4.5 K/uL (4.8-10.8)
[2024-01-15] MEDS: Solu-medROL 125MG VIAL IVP ONE (17:26)
[2024-01-15 17:29] LABS: CREATININE 0.8 mg/dL (0.5-1.0); POTASSIUM 3.1 mmol/L (3.5-5.1)
[2024-01-15] MEDS: ALBUTEROL 0.083% 2.5 MG/3 ML INH IH ONE (18:24)
[2024-01-15 18:25] VITALS: PULSE 89; RESP 22
[2024-01-15] MEDS ORDERED: ALBUHFA IH (19:12)
[2024-01-15] MEDS ORDERED: METH4TAB3 PO (19:12)
--- NOTE | 2024-01-15 19:22 | HMCIMG ---
INDICATION: SOB TECHNIQUE: CHEST 1VW COMPARISON: 01/13/2024 FINDINGS/IMPRESSION: Prominent bilateral interstitial markings which may represent bronchitis or vascular congestion in the proper clinical setting. Cardiac silhouette is within normal limits. Mild degenerative changes of the spine. The visualized upper abdomen appears unremarkable.
[2024-01-15 19:43] VITALS: BP 111/69; PULSE 82; RESP 20; O2SAT 96
== END 2024-01-15 19:58 | disposition home or self-care (01) ==
LOC: EDH 16:38
DX: J10.1 Influenza due to other identified influenza virus with other respiratory manifestations (principal); Z79.899 Other long term (current) drug therapy; Z88.1 Allergy status to other antibiotic agents
CPT/HCPCS: 99284; 96374; 71045; 80048; 85025; 36415; 94640; J2919

== ENCOUNTER 2024-04-13 11:08 | Emergency (ER) | payer MEDICAID ==
[~2024-04-13] VITALS: Ht 157.5 cm; Wt 68.5 kg
[~2024-04-13 11:08] MED LIST changes: +ALBUHFA IH
--- NOTE | 2024-04-13 11:55 | ERN ---
General Chief Complaint: Congestion Stated Complaint: COUGH, CONGESTION, HEADACHE Time Seen by MD: 11:29 Time Seen by Midlevel: 11:29 Source: patient History of Present Illness Initial Comments 40-year-old female presenting to the ER with flu-like symptoms. Her two kids are sick with similar symptoms. Symptoms consist of a headache and nasal congestion. Patient did not want to follow up with your primary care doctor because it was too full so she decided to report to the ER for further evaluation. Allergies: Coded Allergies: levofloxacin (Unverified Allergy, Severe, FACE SWELLS, 10/18/17) Uncoded Allergies: PER PT UNABLE TO RECALL NAME (Allergy, Unknown, 06/26/22) Home Meds Active Scripts Methylprednisolone (Medrol) 4 Mg Tab.ds.pk, 1 TAB PO AD for 6 Days, #21 TAB 0 Refills 6 on day 1 then reduce by one tablet daily until gone Prov:KIRSTIN AHN NP 01/15/24 Albuterol Sulfate (Ventolin Hfa/Proventil Hfa/Proair Hfa) 90 Mcg Puff, 2 PUFF IH Q4H for WHEEZING, #1 INHALER 0 Refills Prov:KIRSTIN AHN NP 01/15/24 Oseltamivir Phosphate (Tamiflu) 75 Mg Cap, 1 CAP PO BID for 5 Days, #10 CAP 0 Refills Prov:SARAH LITTLE DO 01/13/24 Benzonatate (Tessalon Perles) 100 Mg Cap, 100 MG PO TID for cough, #30 CAP 0 Refills Prov:DONATO PEDROZA MD 09/19/23 Methylprednisolone (Medrol) 4 Mg Tab.ds.pk, 4 MG PO AD for 6 Days, #1 PACK Prov:MEGHA HOSKINS MD 12/16/22 Naproxen (Naproxen) 500 Mg Tablet.dr, 500 MG PO [id number] PRN for PAIN, #15 TAB 0 Refills Prov:RYANNE MCKINNON NP 09/06/22 Lactulose (Lactulose) 20 Gm/30 Ml Solution, 20 GM PO BID for constipation for 5 Days, #240 ML Prov:PEPE DU MD 07/24/22 Acetaminophen (Tylenol) 325 Mg Tablet, 650 MG PO Q4HPRN, #50 TAB Prov:BRAYAN SIMONS 01/30/22 Oseltamivir Phosphate (Tamiflu) 75 Mg Cap, 75 MG PO BID for 5 Days, #10 CAP Prov:BRAYAN SIMONS 01/30/22 Cephalexin Monohydrate (Keflex) 500 Mg Cap, 500 MG PO TID for 10 Days, #30 CAP 0 Refills Prov:RUDY GUTIERREZ NP 11/02/20 Reported Medications Ibuprofen (Ibuprofen) 600 Mg Tablet, 600 MG PO AD PRN for PRN, TAB 10/18/17 Bisacodyl (Bisacodyl) 5 Mg Tablet.dr, 5 MG PO DAILY, TAB 10/18/17 Linaclotide (Linzess) 290 Mcg Capsule, 290 MCG PO DAILY, CAP 10/18/17 Temazepam (Temazepam) 30 Mg Capsule, 30 MG PO HS, CAP 10/18/17 Past Medical History Past Medical History: No Pertinent History Medical History Other: IBS Past Surgical History: None Social History Social History: Negative Female( History) History: Not Applicable ROS Dictation CONSTITUTIONAL: Negative except for HPI HEAD/FACE: Negative except for HPI EENT: Negative except for HPI RESPIRATORY: Negative except for HPI GASTROINTESTINAL/ABDOMINAL: Negative except for HPI GENITOURINARY: Negative except for HPI MUSCULOSKELETAL: Negative except for HPI INTEGUMENTARY: Negative except for HPI NEUROLOGICAL/PSYCH: Negative except for HPI HEMATOLOGIC/LYMPHATIC: Negative except for HPI All Systems Negative, Except as noted above. 13 point review of systems assessed and all negative except for above. Physical Exam Physical Exam Dictation Vital Signs reviewed General Appearance: Alert, oriented x 3, no acute distress, well developed, nourished. Head and Face: non-traumatic. Eyes: PERRL, pink conjunctivas, eyelid no trauma, anterior chamber with arcus senilis. Ears: Pinnas intact and no signs of trauma or erythema ear canals clear and no discharge TM no erythema Nose: No discharge, no bleeding. Oropharynx: Mouth normal, tongue pink, pharynx clear,no erythema, tonsils no exudates, no abscesses noted, mucous membrane moist Neck: Supple, non-tender, no thyromegaly, no masses, no JVD, no bruits Breast:Deferred Chest:No tenderness, no crepitus, no paradoxical movement, no retractions Lungs:Clear, well-ventilated, symmetric, no rales, no wheezing, no rhonchi, no stridor, good breath sounds bilaterally Heart: Regular rate, regular rhythm, no murmur, no gallops Vascular: no peripheral edema, Abdomen: Soft, positive bowel sounds, nondistended, no guarding, nontender, no rebound, no masses no hepatomegaly, no splenomegaly, no Banda's sign, no hernias. Rectal: Deferred Genital: Deferred Neurological: Normal speech, motor function intact, sensory function intact Musculoskeletal: Neck nontender, full range of motion, back nontender, full r roseanne of motion, Extremities: nontender, full range of motion Skin: Color pink, dry, no turgor, no rash, no lacerations, no abrasions, no contusions. Lymphatic: Deferred Results Laboratory and Microbiology Lab and Micro Result Laboratory Tests Test 04/13/24 10:06 Influenza Type A Antigen Negative For Type A Influenza Type B Antigen Negative For Type B SARS-CoV-2 Antigen (Rapid) PRESUMPTIVE NEGATIVE Labs Reviewed?: Yes MDM MDM: 40-year-old female presenting to the ER for evaluation of flu-like symptoms. Her two kids are sick with similar symptoms. Physical examination is unremarkable. Lung sounds are clear to auscultation bilaterally. Vital signs are stable. Respiratory swabs are negative. Symptoms most likely viral in nature. Patient will be discharged home with supportive management. She was to follow up with primary care doctor for further evaluation as her condition is not emergency at this time. There was no need for emergent intervention at this time. Differential diagnosis: Viral syndrome, upper respiratory infection, strep pharyngitis There are no social concerns with this patient. Prescription drug management Prescriptions will include: None Medical management and examination interpretation discussions were had by me with other qualified healthcare professionals as indicated for the patient's care. ED Course Orders Procedure Category Date Status Time Covid19 (Sars Antigen LAB 04/13/24 Complete Rapid) 11:17 Influenza Type A & B, LAB 04/13/24 Complete Rapid 11:17 Vital Signs Date Time Temp Pulse Resp B/P (MAP) Pulse Ox O2 Delivery O2 Flow Rate FiO2 04/13/24 14:41 98.2 78 18 121/73 100 Room Air* 0 21 04/13/24 12:19 98.1 80 18 116/70 98 Room Air* 0 21 04/13/24 11:48 98.1 80 18 116/70 100 0 DX & DISP Disposition: Discharge Departure Impression: Primary Impression: Viral syndrome Condition: Stable Additional Instructions: Your symptoms are consistent with a viral illness that does not require antibiotics at this time. You have tested negative for influenza a, influenza B, and COVID-19. Please follow up with your primary care doctor for repeat evaluation. Referrals: BETTIE FARRAR MD (PCP) Time of Disposition: 14:31 I have reviewed the case, and I agree with, Diagnosis and Plan I performed the substantive portion of the visit. I have reviewed and personally made and approve the management plan that is documented in the note by myself or the ELENA. I acknowledge for responsibility for the patient's management plan. PAUL LOBO Apr 13, 2024 11:55
[2024-04-13 12:46] LABS: INFLUENZA TYPE A Negative For Type A (NEGATIVE); INFLUENZA TYPE B Negative For Type B (NEGATIVE)
[2024-04-13 12:47] LABS: COVID19 (SARS ANTIGEN RAPID) PRESUMPTIVE NEGATIVE (NEGATIVE)
[2024-04-13 14:41] VITALS: BP 121/73; PULSE 78; RESP 18; TEMP 98.2; O2SAT 100
== END 2024-04-13 14:43 | disposition home or self-care (01) ==
LOC: EDH 11:08
DX: B34.9 Viral infection, unspecified (principal); Z88.1 Allergy status to other antibiotic agents; Z20.822 Contact with and (suspected) exposure to COVID-19
CPT/HCPCS: 87426; 87804; 99283